=== PATIENT | male | born 1965 | race Caucasian/White ===

== ENCOUNTER → 2018-08-28 12:26 | Outpatient (CLI) | payer MEDICAID, SELFPAY | PROVIDERS: PCP Physician Assistant; Visit Provider Urology | DX: R94.31 Abnormal electrocardiogram [ECG] [EKG] (principal); R00.1 Bradycardia, unspecified | CPT/HCPCS: 93270 ==

== ENCOUNTER → 2018-09-04 06:57 | Outpatient (CLI) | payer MEDICAID, SELFPAY ==
--- NOTE | 2018-09-04 06:59 | NM_ITS ---
History and Indications: Hypertension, hyperlipidemia, chronic tobacco use, family history and chest pain Procedure: Patient exercised on Ramos protocol 8 minutes and 30 seconds, resting heart rate was 85 bpm resting blood pressure 147/88, with exercise maximum heart rate achieved was 1 63 bpm which is greater than 85% of the maximum predicted heart rate and a blood pressure was 196/90. Test was started due to shortness of breath patient denied complained chest pain. Patient has good exercise capacity achieved 10.1METS of workload on treadmill, the blood pressure response to exercise was adequate. Electrocardiogram: Resting echocardiogram showed sinus rhythm, with exercise there is less than 1.[address] segment depression noted from the baseline EKG. The EKG portion of the exercise Myoview is negative for ischemia. Cardiac stress and resting SPECT images: Cardiac stress and resting SPECT images were obtained using technetium 99 Myoview 30.7 mCi stress and 10.4 mCi at rest. Gated SPECT further analysis of segmental wall motion and calculation of the ejection fraction also done. Cardiac stress and rest SPECT images show uniform myocardial activity without segmental perfusion abnormality, computer derived ejection fraction is 52% with no regional wall motion abnormality, right ventricle is normal size and contractility. Conclusion: 1. The EKG portion of the exercise Myoview is negative for ischemia, patient has good exercise capacity achieved 10.1METS of workload on treadmill, the blood pressure response to exercise was adequate. 2. No scintigraphic evidence of reversible ischemia seen, computer derived ejection fraction is 52% with no regional wall motion abnormality, right ventricle is normal size and contractility. 3. Normal exercise Myoview study.
--- NOTE | 2018-09-04 06:59 | CA_ITS ---
PROCEDURE: 2-D echo, M-mode Doppler study. INDICATIONS FOR THE TEST: Chest pain X COPD Heart Murmur Tobacco SmokingX Palpitations Fatigue Syncope Edema HypertensionXDiabetes Mellitus Rheumatic Fever SOB DOEXObesity HyperlipidemiaX Family History HDX Additional History CVA PATIENT INFORMATION HEIGHT: 66 WEIGHT:162 GENDER: Male B/P:148/72 2-D/M-MODE INTERPRETATION: 2-D MEASUREMENTS OBSERVED VALUES IN CMS Right Ventricular Dimension (RVDd) 2.6 Interventricular Septum (Thickness)(IVsd) .9 Left Ventricular Internal Dimensions(LVIDd) 5.0 Left Ventricular Posterior Wall (Thickness)(LVPWd) .9 Aortic Root 3.0 Aortic Cusp Separation 1.7 Left Atrial Dimensions (LAD) 2.4 2D 1. Left atrium is qualitatively mildly enlarged, left ventricle is normal size, there is mild qualitative concentric left ventricular hypertrophy, visually estimated ejection fraction 55% with no regional wall motion abnormality. 2. The right atrium and right ventricle are normal size and contractility. 3. The aortic valve is minimally thickened and fibrosed. 4. The mitral and tricuspid valve leaflets are minimally thickened 5. The pulmonic valve is poorly present. 6. No significant pericardial effusion noted. DOPPLER INTERROGATION: Doppler interrogation of the aortic, mitral and tricuspid valvular presence of mild mitral and tricuspid regurgitation, calculated right ventricular systolic pressure 49 mmHg represents moderate pulmonary hypertension, grade 1 diastolic dysfunction seen with tissue Doppler evidence of raised left atrial pressure. CONCLUSION: 1. Mildly enlarged left atrium, normal left ventricular size, mild concentric left ventricular hypertrophy, visually estimated ejection fraction of 55% with no regional wall motion abnormality, grade 1 diastolic dysfunction seen with tissue Doppler evidence of raised left atrial pressure. 2. Thickened and calcified aortic valve without aortic stenosis, there is mild aortic insufficiency. 3. Mild mitral and tricuspid regurgitation, calculated right ventricular systolic pressure is 49 mmHg consistent with moderate pulmonary hypertension. 4. No significant pericardial effusion noted.
--- NOTE | 2018-09-04 10:49 | HMH.ITSHM ---
Current Home Medications as stated by this patient Xavier Clarke or entry level marketing representative. []lisinopril
== END ==
PROVIDERS: PCP Physician Assistant; Visit Provider Internal Medicine
DX: R07.9 Chest pain, unspecified (principal); R06.09 Other forms of dyspnea; R94.31 Abnormal electrocardiogram [ECG] [EKG]; E78.5 Hyperlipidemia, unspecified; F17.200 Nicotine dependence, unspecified, uncomplicated; I10 Essential (primary) hypertension; I63.9 Cerebral infarction, unspecified; R00.1 Bradycardia, unspecified; Z82.49 Family history of ischemic heart disease and other diseases of the circulatory system
CPT/HCPCS: 78452; 93017; 93306; A9502

== ENCOUNTER → 2020-07-29 11:06 | Outpatient (CLI) | payer MEDICAID, SELFPAY | PROVIDERS: PCP Physician Assistant; Visit Provider Family Medicine | DX: Z20.828 Contact with and (suspected) exposure to other viral communicable diseases (principal); U07.1 COVID-19 | CPT/HCPCS: U0003 ==